=== PATIENT | male | born 1960 | race Caucasian/White ===

== ENCOUNTER 2021-06-29 19:02 | Emergency (ER) | payer OTHER, SELFPAY ==
[2021-06-29 19:54] VITALS: BP 146/103; PULSE 87; RESP 18; TEMP 36.5; O2SAT 96; BMI 27.8
[2021-06-29 20:11] LABS: Color,Urine Amber (Yellow)
[2021-06-29 20:12] LABS: Apearance,Urine Turbid (Clear); Blood, Urine 1+ (Negative); Glucose,Urine (UA) Negative (Negative); Ketones,Urine TRACE (Negative); Protein,Urine 2+ (Negative)
[2021-06-29 20:13] LABS: Bilirubin,Urine 1+ (Negative); UTC Leukocyte Esterase,Urine Negative (Negative); Urobilinogen,Urine 0.2 EU/dl (0.2)
[2021-06-29 20:14] LABS: UTC Nitrate,Urine Negative (Negative)
--- NOTE | 2021-06-29 20:44 | HMH.EDUTC ---
[facility] [place] Clinical Impression: Abdominal pain Qualifiers: Abdominal location: unspecified location Qualified Code(s): R10.9 - Unspecified abdominal pain Disposition: Still a Patient Condition on Discharge: Fair Referrals: Provider,Referral, [Primary Care Provider] - Time of Disposition: 21:01 Medical Decision Making - Medical Records Medical records reviewed: No: I reviewed the patient's medical records. - West Inquiry Pt receiving controlled substance: No Vital Signs: 06/29/21 19:54 Temperature 97.7 F Temperature Source Oral Pulse Rate [Left] 87 Respiratory Rate 18 Blood Pressure [Right Arm] 146/103 H Blood Pressure Mean [Right Arm] 117 02 Sat by Pulse Oximetry 96 - Lab Data Lab results reviewed: Yes: I reviewed the patient's lab results. Lab Results 06/29/21 20:06: Urine Color Marla, Urine Appearance Turbid, Urine pH 6.0, Ur Specific [place] 1.020, Urine Protein 2+, Urine Glucose (UA) Negative, Urine Ketones Trace, Urine Blood 1+, Urine Nitrate Negative, Urine Bilirubin 1+ A, Urine Urobilinogen 0.2, Ur Leukocyte Esterase Negative Orders (Tests/Meds): ORDERS Category Date Time Status Urine Culture Stat Micro 06/29/21 20:03 [place] [facility] [place] - General Stated complaint: stomach Time Seen by Provider: 06/29/21 20:44 Mode of Arrival: Ambulatory Source of Information: Patient Limitations: No Limitations Description of Symptoms (Recalled from Triage Doc. by RN): pt states he has been having RLQ and LLQ pain that radiates to flank for about 2-3 weeks. pt is distended. pt also reports nausea since all of this has been ongoing as well as random cold/clammy periods. pt denies any febrile instances during this time. HEENT Symptoms (Recalled from RN notes): No Resp Symptoms (Recalled from RN notes): No Skin Symptoms (Recalled from RN notes): No MS Symptoms (Recalled from RN notes): No Functional Status (Recalled from RN notes): see above - History of Present Illness Provider Complaint: He states that he has had right and left lower quadrant abdominal pain for the past 11 days. He has had abdominal distention also. The pain radiates through to his back. He has not had a documented fever, but he has had chilling and episodes of breaking out into a sweat. He has just not felt good too. - Related Data Allergies Allergy/AdvReac Type Severity Reaction Status Date / Time No Known Allergies Allergy Verified 06/29/21 20:05 - Worker's Comp Is this a Worker's Comp case?: No [facility] History - Hepatitis A Screen Drug use history?: No High risk sexual behaviors?: No History of sexually transmitted infection?: No Currently employed?: No Childcare worker?: No Do you have indoor plumbing?: Yes Do you have electricity?: Yes Attestation statement:: This patient has been screened for Hepatitis A risk factors. I have reviewed the patient's past medical history: Yes ROS Obtained: Yes All systems reviewed & no additional complaints - Constitutional Constitutional: Reports chills, Denies fever(s), Reports poor appetite, Reports malaise - ENT Ears, Nose, Mouth, and Throat: Denies sore throat - Cardiovascular Cardiovascular: Denies chest pain - Respiratory Respiratory: Denies chest congestion, Denies cough - Gastrointestinal Gastrointestingal: Reports: as per HPI - Genitourinary Male Genitourinary: Denies difficulty urinating Physical Exam - General General appearance: alert, in no apparent distress - Head Head exam: atraumatic, normocephalic, normal inspection - Eye Eye exam: Present: normal appearance, PERRL, EOMI - ENT ENT exam: Present: normal exam, normal oropharynx, mucous membranes moist, TM's normal bilaterally, normal external ear exam - Neck Neck exam: Present: normal inspection, full ROM, trachea midline. Absent: meningismus, lymphadenopathy - Chest Chest inspection: Present: normal inspection, symmetric chest wall rise. Absent: tenderness -
[2021-06-29 21:03] VITALS: BP 150/95; PULSE 65; RESP 14; TEMP 37.1; O2SAT 97
--- NOTE | 2021-06-29 21:03 | PC.NURSE ---
report given to Jessica CARTER. pt is being sent to er #[id number]
[2021-06-29 21:16] VITALS: BP 168/122; PULSE 87; RESP 16; TEMP 36.8; O2SAT 96; BMI 27.8
--- NOTE | 2021-06-29 21:31 | CT_ITS ---
PROCEDURE INFORMATION: Exam: CT Abdomen And Pelvis With Contrast Exam date and time: 06/29/2021 9:31 PM Age: 60 years old Clinical indication: Abdominal pain; Localized; Patient HX: Lower abd pain with nausea, loss of appetite TECHNIQUE: Imaging protocol: Computed tomography of the abdomen and pelvis with contrast. Radiation optimization: All CT scans at this facility use at least one of these dose optimization techniques: automated exposure control; mA and/or kV adjustment per patient size (includes targeted exams where dose is matched to clinical indication); or iterative reconstruction. Contrast material: ISOVUE; Contrast volume: 75 ml; Contrast route: IV; COMPARISON: No relevant prior studies available. FINDINGS: Lungs: Patchy bilateral airspace opacities are seen. Differential includes infection, septic emboli, and potentially metastatic disease. Liver: Normal. No mass. Gallbladder and bile ducts: Normal. No calcified stones. No ductal dilation. Pancreas: Normal. No ductal dilation. Spleen: Normal. No splenomegaly. Adrenal glands: Normal. No mass. Kidneys and ureters: Normal. No hydronephrosis. Stomach and bowel: Unremarkable. No obstruction. No mucosal thickening. Appendix: No evidence of appendicitis. Intraperitoneal space: Unremarkable. No free air. No significant fluid collection. Lymph nodes: Unremarkable. No enlarged lymph nodes. Urinary bladder: Unremarkable as visualized. Reproductive: Unremarkable as visualized. Bones/joints: Unremarkable. No acute fracture. Soft tissues: Unremarkable. IMPRESSION: 1. No acute intra-abdominal pathology 2. Multifocal airspace opacities are seen in the bilateral lungs. Differential includes infection, septic emboli, and potentially malignancy. Clinical correlation recommended.
[2021-06-29 21:36] LABS: Basophils # 0.1 K/mm3 (0-0.2); Basophils % 1.6 % (0.1-2.0); Eosinophils # 0.2 K/mm3 (0.0-0.4); Eosinophils % 2.2 % (0.1-12.0); Hematocrit 50.6 % (42.0-52.0); Hemoglobin 17.5 g/dL (14.1-18.0); Lymphocytes % 23.4 % (10-50); Mean Corpuscular HGB Conc 34.6 g/dL (31.8-35.4); Mean Corpuscular Hemoglobin 31.7 pg (27.0-31.2); Mean Corpuscular Volume 91.7 fl (80-94); Mean Platelet Volume 9.2 fl (7.4-10.4); Monocytes # 0.6 K/mm3 (0.1-1.0); Monocytes % 6.6 % (1.7-9.3); Neutrophils # 5.8 K/mm3 (1.8-7.8); Neutrophils % 66.2 % (37.0-80.0); Platelet Count 365 K/mm3 (142-424); Red Blood Count 5.52 M/mm3 (4.60-6.20); Red Cell Distribution Width 12.6 % (11.5-17.5); White Blood Count 8.7 K/mm3 (4.8-10.8)
[2021-06-29 21:41] LABS: Alanine Aminotransferase 54 U/L (12-78); Albumin Level 4.3 g/dl (3.5-5.0); Albumin/Globulin Ratio 1.1 (1.1-1.8); Alkaline Phosphatase 122 U/L (38-126); Amylase 64 U/L (30-110); Anion Gap 17.3 mEq/L (5-15); Aspartate Amino Transferase 57 U/L (17-59); Bilirubin,Total 0.6 mg/dl (0.2-1.3); Blood Urea Nitrogen 15 mg/dl (9-20); Calcium 9.1 mg/dl (8.4-10.2); Carbon Dioxide 22 mmol/L (22.0-30.0); Chloride 105 mmol/L (98-107); Creatinine Clearance Estimated 98 mL/min (50-200); Estimated Glomerular Filt Rate 98 ml/min (>60); GFR (African American) 119 ML/MIN (>60); Globulin 3.9 g/dL (1.3-3.2); Glucose 103 mg/dl (74-100); Lipase 59 U/L (23-300); Potassium 3.3 mmoL/L (3.5-5.1); Sodium 141 mmol/L (136-145); Total Protein,Serum 8.2 g/dl (6.3-8.2)
[2021-06-29 21:46] LABS: C-Reactive Protein 5.9 mg/L (0-4)
[2021-06-29 22:00] LABS: Procalcitonin 0.091 ng/mL (0.0-2.0)
[2021-06-29 22:08] LABS: Erythrocyte Sedimentation Rate 22 mm/hr (0-20)
--- NOTE | 2021-06-30 00:21 | XR_ITS ---
PROCEDURE INFORMATION: Exam: XR Chest Exam date and time: 06/30/2021 12:21 AM Age: 60 years old Clinical indication: Abnormal findings; Abnormal radiologic exam of lung or chest; Cough; Additional info: Abn CT TECHNIQUE: Imaging protocol: XR of the chest. Views: 2 views. COMPARISON: CT ABDOMEN PELVIS W CON 06/29/2021 10:11 PM FINDINGS: Lungs: Scattered mild multifocal airspace opacities are seen. Findings are consistent with CT findings. Pleural spaces: Unremarkable. No pleural effusion. No pneumothorax. Heart/Mediastinum: Unremarkable. No cardiomegaly. Bones/joints: Unremarkable. IMPRESSION: Scattered multifocal airspace opacities. Differential remains the same including infection, septic emboli, and potentially malignancy. Clinical correlation recommended.
--- NOTE | 2021-06-30 00:22 | HMH.EDNVD ---
ED Disposition Clinical Impression: COVID-19 Abdominal pain Qualifiers: Abdominal location: unspecified location Qualified Code(s): R10.9 - Unspecified abdominal pain Hypertension Qualifiers: Hypertension type: primary hypertension Qualified Code(s): I10 - Essential (primary) hypertension Disposition: Home, Self-Care Condition on Discharge: Good Instructions: DI for COVID-19 (Suspected or Confirmed ) Additional Instructions: fluids and see pcp for follow up and bp management Prescriptions: lisinopriL [Lisinopril] 10 mg PO DAILY #21 tab Transmission Status: Pending to [employer] Referrals: Provider,Referral, [Primary Care Provider] - - Critical Care Critical Care Time: No Attestation: On 06/29/21, the high probability of a clinically significant, sudden or life threatening deterioration of the following system(s) required my full and direct attention, intervention and personal management. The time I documented below is in addition to time spent performing reported procedures but includes the following listed in this critical care notation. Medical Decision Making - Medical Records Medical records reviewed: Yes: I reviewed the patient's medical records. - West Inquiry Pt receiving controlled substance: No Vital Signs: 06/29/21 19:54 06/29/21 21:03 06/29/21 21:16 Temperature 97.7 F 98.8 F 98.2 F Temperature Source Oral Oral Oral Pulse Rate [Left] 87 65 87 Respiratory Rate 18 14 16 Blood Pressure [Right Arm] 146/103 H 150/95 H 168/122 H Blood Pressure Mean [Right Arm] 117 113 137 Blood Pressure Source [Right Arm] Automatic Cuff Blood Pressure Position [Right Arm] Sitting 02 Sat by Pulse Oximetry 96 97 96 Oxygen Delivery Method Room Air - Lab Data Lab results reviewed: Yes: I reviewed the patient's lab results. Lab Results 06/29/21 20:06: Urine Color Marla, Urine Appearance Turbid, Urine pH 6.0, Ur Specific [place] 1.020, Urine Protein 2+, Urine Glucose (UA) Negative, Urine Ketones Trace, Urine Blood 1+, Urine Nitrate Negative, Urine Bilirubin 1+ A, Urine Urobilinogen 0.2, Ur Leukocyte Esterase Negative 06/29/21 21:00: WBC 8.7, RBC 5.52, Hgb 17.5, Hct 50.6, MCV 91.7, MCH 31.7 H, MCHC 34.6, RDW 12.6, Plt Count 365, MPV 9.2, Neut % (Auto) 66.2, Lymph % (Auto) 23.4, [place] % (Auto) 6.6, Eos % (Auto) 2.2, Baso % (Auto) 1.6, Neut # (Auto) 5.8, Lymph # (Auto) 2.0, [place] # (Auto) 0.6, Eos # (Auto) 0.2, Baso # (Auto) 0.1, ESR 22 H 06/29/21 21:00: Sodium 141, Potassium 3.3 L, Chloride 105, Carbon Dioxide 22, Anion Gap 17.3 H, BUN 15, Creatinine 0.80, Estimated Creat Clear 98, Estimated GFR 98, Est GFR ( Amer) 119, Glucose 103 H, Calcium 9.1, Total Bilirubin 0.6, AST 57, ALT 54, Alkaline Phosphatase 122, C-Reactive Protein 5.9 H, Total Protein 8.2, Albumin 4.3, Globulin 3.9 H, Albumin/Globulin Ratio 1.1, Amylase 64, Lipase 59 06/29/21 21:00: Procalcitonin 0.091 06/30/21 02:22: SARS-CoV-2 (PCR) Detected A, Influenza A Untype (PCR) Not detected, Influenza Type B (PCR) Not detected Result diagrams: 06/29/21 21:00 06/29/21 21:00 Orders (Tests/Meds): ED MEDICATIONS Generic Name Dose Route Start Last Admin Trade Name Freq PRN Reason Stop Dose Admin Sodium Chloride 1,000 mls @ 999 mls/hr 06/29/21 21:45 06/29/21 22:03 Sod Chlor 0.9% 1000ml Bag IV 06/29/21 22:45 999 mls/hr .Q1H1M [place] Administration Sodium Chloride 8 ml 06/29/21 21:32 Sodium Chloride 0.9% 10ml Vial IV 07/29/21 21:31 NEEDED PRN dilute pepcid Discontinued Medications Generic Name Dose Route Start Last Admin Trade Name Freq PRN Reason Stop Dose Admin Famotidine 20 mg 06/29/21 21:32 06/29/21 22:03 Famotidine 20mg/2ml Vial IV 06/29/21 21:33 20 mg ONCE ONE Administration Iopamidol 75 ml 06/29/21 22:28 06/29/21 22:28 Iopamidol-370 (76%);100ml Bottle IV 06/29/21 22:29 75 ml ONCE ONE Administration Ketorolac Tromethamine 30 mg 06/29/21 21:32 06/29/21 22:03 Keto
--- NOTE | 2021-06-30 00:42 | PC.NURSE ---
patient to radiology
--- NOTE | 2021-06-30 00:54 | CT_ITS ---
PROCEDURE INFORMATION: Exam: CT Chest Without Contrast; Diagnostic Exam date and time: 06/30/2021 12:54 AM Age: 60 years old Clinical indication: Abnormal findings; Abnormal radiologic exam of lung or chest; Additional info: Abnormal chest xray TECHNIQUE: Imaging protocol: Diagnostic computed tomography of the chest without contrast. Radiation optimization: All CT scans at this facility use at least one of these dose optimization techniques: automated exposure control; mA and/or kV adjustment per patient size (includes targeted exams where dose is matched to clinical indication); or iterative reconstruction. COMPARISON: CR XR CHEST 2V 06/30/2021 12:30 AM FINDINGS: Lungs: There are patchy amorphous infiltrates identified within both lung rothman. Relative mild sparing of the upper lobes with predominant involvement of mid and lower lung zones. Many of the infiltrates have a peripheral distribution. Primary diagnostic consideration would be viral interstitial pneumonitis including interstitial pneumonitis caused by Covid 19. There is a calcified granuloma identified at the right lung base. Pleural spaces: Unremarkable. No pneumothorax. No pleural effusion. Heart: Unremarkable. No cardiomegaly. No pericardial effusion. Coronary arteries: No evidence of coronary artery calcification Mediastinal space: No evidence of mediastinal or hilar mass. Aorta: Unremarkable. No aortic aneurysm. Lymph nodes: There are unenlarged calcified lymph nodes identified within the right hilus, within the middle mediastinum, and within the right infrahilar region. Bones/joints: Degenerative changes of the thoracic spine noted. No acute fracture. Soft tissues: Attention is directed to the thyroid gland. There is fullness of the inferior aspect of the left thyroid lobe. There are fine calcifications noted within the inferior aspect of the left thyroid lobe. These findings are compatible with a goiter. This would be better assessed by ultrasound of the neck with attention to the thyroid gland for further evaluation. IMPRESSION: 1. There are amorphous infiltrates with peripheral distribution noted within both lung rothman. Primary diagnostic consideration would be viral interstitial pneumonitis including interstitial pneumonitis caused by Covid 19. 2. Evidence of old healed granulomatous disease present within the right lung and right hilus/middle mediastinum. 3. Changes of thyroid goiter which should be further evaluated by ultrasound of the neck with attention to the thyroid gland when clinically appropriate.
[2021-06-30 02:33] LABS: Influenza A, PCR Not Detected (NotDetected); Influenza B, PCR Not Detected (NotDetected)
[2021-06-30 03:06] LABS: Coronavirus 19, PCR Detected (NotDetected)
[2021-06-30 03:24] VITALS: BP 155/99; PULSE 80; RESP 17; TEMP 36.8; O2SAT 96
[2021-06-30 03:48] VITALS: BP 155/99; PULSE 80; RESP 17; TEMP 37.2; O2SAT 97
== END 2021-06-30 03:30 | disposition home or self-care (01) ==
LOC: UTC 21:01 → ER 21:04
PROVIDERS: Nurse Practitioner Family; Emergency Provider Emergency Medicine
DX: U07.1 COVID-19 (principal); R10.32 Left lower quadrant pain; I10 Essential (primary) hypertension
CPT/HCPCS: 71046; 71250; 74177; 80053; 81003; 82150; 83690; 84145; 85025; 85651; 86140; 87086; 96365; 96375; 99283; C9803; J2405; Q9967; U0003; U0005

== ENCOUNTER 2025-07-03 09:37 | Outpatient (CLI) | payer MEDICARE, SELFPAY ==
[2025-07-03 20:58] LABS: Hematocrit 49.8 % (42.0-52.0); Hemoglobin 16.5 g/dL (14.1-18.0); Immature Granulocytes % 0.3 %; Mean Corpuscular HGB Conc 33.1 g/dL (31.8-35.4); Mean Corpuscular Hemoglobin 31.1 pg (27.0-31.2); Mean Corpuscular Volume 94.0 fl (80-94); Nucleated Red Blood Cells % 0 %; Platelet Count 262 K/mm3 (142-424); Red Blood Count 5.30 M/mm3 (4.60-6.20); Red Cell Distribution Width-SD 43.2 fL; White Blood Count 11.4 K/mm3 (4.8-10.8)
[2025-07-03 21:18] LABS: Alanine Aminotransferase 23 U/L (12-78); Albumin Level 4.4 g/dl (3.5-5.0); Albumin/Globulin Ratio 1.6 (1.1-1.8); Alkaline Phosphatase 101 U/L (38-126); Anion Gap 15.6 mEq/L (5-15); Aspartate Amino Transferase 25 U/L (17-59); Bilirubin,Total 0.6 mg/dl (0.2-1.3); Blood Urea Nitrogen 15 mg/dl (9-20); Calcium 9.3 mg/dl (8.4-10.2); Carbon Dioxide 21 mmol/L (22.0-30.0); Chloride 108 mmol/L (98-107); Cholesterol 232 mg/dl (140-200); Creatinine,Serum 0.90 mg/dl (0.66-1.25); Estimated Glomerular Filt Rate 84 ml/min (>60); GFR (African American) 102 ML/MIN (>60); Globulin 2.7 g/dL (1.3-3.2); Glucose 100 mg/dl (74-100); HDL Cholesterol 43 mg/dl (40-60); Potassium 4.6 mmoL/L (3.5-5.1); Sodium 140 mmol/L (136-145); Total Protein,Serum 7.1 g/dl (6.3-8.2); Triglycerides 207 mg/dl (30-150)
[2025-07-03 21:48] LABS: Thyroid Stimulating Hormone 1.29 uIU/mL (0.465-4.68)
[2025-07-03 22:49] LABS: Hepatitis C Ab Qual. W/ RFX NEGATIVE (Negative)
[2025-07-05 07:56] LABS: Hepatitis B Surface Antigen Negative (Negative)
== END 2025-07-03 23:59 ==
LOC: LAB.DROPOF 07-07 09:04
PROVIDERS: PCP Family Medicine; Visit Provider Family Medicine
DX: I10 Essential (primary) hypertension (principal); Z11.4 Encounter for screening for human immunodeficiency virus [HIV]; Z11.59 Encounter for screening for other viral diseases; R35.1 Nocturia
CPT/HCPCS: 80053; 80061; 84443; 85025; 86803; 87340; 87389; G0103